=== PATIENT | female | born 2000 | race Caucasian/White ===

== ENCOUNTER 2019-01-02 10:54 | Emergency (ER) | payer OTHER, BC ==
[2019-01-02 11:04] VITALS: TEMP 98.3
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
[2019-01-02 12:52] VITALS: BP 111/66; PULSE 55; RESP 18
== END 2019-01-02 12:50 | disposition home or self-care (01) ==
LOC: EC 10:54
DX: S62.002A Unspecified fracture of navicular [scaphoid] bone of left wrist, initial encounter for closed fracture (principal); F17.200 Nicotine dependence, unspecified, uncomplicated; V43.52XA Car driver injured in collision with other type car in traffic accident, initial encounter; W22.11XA Striking against or struck by driver side automobile airbag, initial encounter; Y92.410 Unspecified street and highway as the place of occurrence of the external cause
CPT/HCPCS: 29125; 99284

== ENCOUNTER → 2019-04-24 | Outpatient (CLI) | payer BC ==
--- NOTE | 2019-04-24 14:46 | US ---
EXAMINATION TYPE: US pelvis complete transvag DATE OF EXAM: 04/24/2019 COMPARISON: NONE CLINICAL HISTORY: R10.9 abdominal pain,R10.2Pelvic and perineal pain. Patient has never had a period. Patient had an ultrasound at Dr. Goyal's office that stated no uterus with only 1 ovary TECHNIQUE: Transvaginal (TV) and Transabdominal (TA) . Transabdominal sonographic images of the pel vis were acquired. Transvaginal sonographic images were medically necessary to better assess the fol lowing anatomy: uterus Date of LMP: EXAM MEASUREMENTS: Uterus: unable to visualize Endometrial Stripe: unable to visualize Right Ovary: 4.0 x 2.0 x 2.4 cm Left Ovary: 3.9 x 2.4 x 3.7 cm 1. Uterus: unable to identify distinct uterus at this time 2. Endometrium: unable to visualize 3. Right Ovary: appears bulky adjacent to right ovary 4. Left Ovary: cystic area = 3.0 x 1.8 x 2.8cm IMPRESSION: Left ovarian cyst. Indeterminate focus adjacent to the right ovary. Uterus is not seen de finitively. Pelvic MRI may be of benefit.
--- NOTE | 2019-04-24 14:59 | US ---
EXAMINATION TYPE: US abdomen complete DATE OF EXAM: 04/24/2019 COMPARISON: NONE CLINICAL HISTORY: R10.9 abdominal pain,R10.2Pelvic and perineal pain. acid reflux EXAM MEASUREMENTS: Liver Length: 13.2 cm Gallbladder Wall: 0.2 cm CBD: 0.3 cm Spleen: 11.7 cm Right Kidney: 11.3 x 4.9 x 4.6 cm Left Kidney: 9.9 x 5.1 x 4.6 cm Pancreas: limited evaluation due to overlying bowel content Liver: appears wnl Gallbladder: no evidence of stones Evidence for sonographic Jim's sign: no CBD: wnl Spleen: wnl Right Kidney: no evidence of hydronephrosiss Left Kidney: no evidence of hydronephrosis Upper IVC: wnl Abd Aorta: wnl There is no ascites. The liver is homogenous. The intrahepatic portion of the IVC and proximal abdominal aorta are within normal limits. There is no evidence of cholelithiasis. Common bile duct is unremarkable. The visu alized portions of the pancreas are homogenous. The spleen is unremarkable. Kidneys are symmetric a nd free of hydronephrosis. No renal lesions are seen. IMPRESSION: No significant abnormalities evident.
== END | disposition home or self-care (01) ==
LOC: RADCTMAIN 11:58
PROVIDERS: ATTEND Family Medicine
DX: N83.202 Unspecified ovarian cyst, left side (principal)
CPT/HCPCS: 76700; 76830; 76856

== ENCOUNTER 2019-06-26 01:09 | Emergency (ER) | payer BC ==
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
--- NOTE | 2019-06-26 01:56 | CT ---
EXAM: CT Head Without Intravenous Contrast CLINICAL HISTORY: ITS.REASON CT Reason: Pain TECHNIQUE: Axial computed tomography images of the head/brain without intravenous contrast. CTDI is 49 mGy and DLP is 1078 mGy-cm. This CT exam was performed using one or more of the following dose reduction techniques: automated exposure control, adjustment of the mA and/or kV according to patient size, and/or use of iterative reconstruction technique. COMPARISON: No relevant prior studies available. FINDINGS: Brain: No hemorrhage, large hypodensity, or mass effect. Ventricles: No hydrocephalus. Bones/joints: Unremarkable. Soft tissues: Unremarkable. Sinuses: Unremarkable. Mastoid air cells: Clear. IMPRESSION: No acute hemorrhage, hydrocephalus, or mass effect.
[2019-06-26 02:18] VITALS: BP 101/64; PULSE 79; RESP 16; TEMP 97.9
== END 2019-06-26 02:17 | disposition home or self-care (01) ==
LOC: EC 01:09
DX: S06.899A Other specified intracranial injury with loss of consciousness of unspecified duration, initial encounter (principal); F17.200 Nicotine dependence, unspecified, uncomplicated; W50.1XXA Accidental kick by another person, initial encounter; Y92.64 Mine or pit as the place of occurrence of the external cause
CPT/HCPCS: 70450; 99284

== ENCOUNTER 2020-01-17 12:12 | Inpatient (IN) | payer BC ==
[2020-01-17 12:47] LABS: Appearance,Urine Clear (Clear); Bilirubin,Urine Negative (Negative); Blood,Urine Negative (Negative); Color,Urine Yellow; Glucose,Urine (UA) Negative (Negative); Ketones,Urine Negative (Negative); Leukocyte Esterase,Urine Negative (Negative); Nitrite,Urine Negative (Negative); Protein,Urine Negative (Negative); Specific Gravity,Urine 1.015 (1.001-1.035); Urobilinogen,Urine <2.0 mg/dL (<2.0)
--- NOTE | 2020-01-17 12:51 | ED ---
General Adult HPI - General Chief complaint: Psychiatric Symptoms Stated complaint: Suicidal Time Seen by Provider: 01/17/20 12:28 Source: patient, family, RN notes reviewed Mode of arrival: ambulatory - History of Present Illness Initial comments: 19-year-old female without any significant past medical history presents to the emergency department for a chief coming of suicidal thoughts. Mother states that patient has been telling her boyfriend that she is suicidal and her boyfriend has been relaying this information to patient's sister. Patient does admit she's had thoughts of harming herself. Denies a plan of suicide. Mother states this is very and character state of her. patient began doing cocaine a few months ago and has been drinking heavily. Patient states she thinks this is why she is feeling this way. She is not on any antidepressants and has not ever been diagnosed with psychiatric condition prior to this.Patient has no other complaints at this time including shortness of breath, chest pain, abdominal pain, nausea or vomiting, headache, or visual changes. - Related Data Home Medications Medication Instructions Recorded Confirmed No Known Home Medications 01/02/19 01/02/19 Allergies Allergy/AdvReac Type Severity Reaction Status Date / Time No Known Allergies Allergy Verified 01/17/20 12:23 Review of Systems ROS Statement: Those systems with pertinent positive or pertinent negative responses have been documented in the HPI. ROS Other: All systems not noted in ROS Statement are negative. Past Medical History Past Medical History: No Reported History History of Any Multi-Drug Resistant Organisms: None Reported Past Surgical History: No Surgical Hx Reported Past Psychological History: No Psychological Hx Reported Smoking Status: Current every day smoker Past Alcohol Use History: Daily Past Drug Use History: Cocaine General Exam General appearance: alert, in no apparent distress Head exam: Present: atraumatic, normocephalic, normal inspection Eye exam: Present: normal appearance, PERRL, EOMI. Absent: scleral icterus, conjunctival injection, periorbital swelling ENT exam: Present: normal exam, mucous membranes moist Respiratory exam: Present: normal lung sounds bilaterally. Absent: respiratory distress, wheezes, rales, rhonchi, stridor Cardiovascular Exam: Present: regular rate, normal rhythm, normal heart sounds. Absent: systolic murmur, diastolic murmur, rubs, gallop, clicks GI/Abdominal exam: Present: soft, normal bowel sounds. Absent: distended, tenderness, guarding, rebound, rigid Neurological exam: Present: alert Course Vital Signs 01/17/20 01/17/20 01/17/20 12:20 12:47 13:23 Temperature 98.1 F Pulse Rate 114 H Respiratory 20 20 20 Rate Blood Pressure 148/87 O2 Sat by Pulse 95 Oximetry 01/17/20 14:23 Temperature Pulse Rate Respiratory 20 Rate Blood Pressure O2 Sat by Pulse Oximetry - Reevaluation(s) Reevaluation #1: 01/17/20 14:29 Patient reevaluated, resting comfortably. Family members at bedside. Medical Decision Making - Medical Decision Making She was evaluated by EPS, recommending inpatient admission. - Lab Data Lab Results 01/17/20 01/17/20 01/17/20 Range/Units 12:30 12:30 12:30 Urine Color Yellow Urine Appearance Clear (Clear) Urine pH 6.0 (5.0-8.0) Ur Specific Alexis 1.015 (1.001-1.035) Urine Protein Negative (Negative) Urine Glucose (UA) Negative (Negative) Urine Ketones Negative (Negative) Urine Blood Negative (Negative) Urine Nitrite Negative (Negative) Urine Bilirubin Negative (Negative) Urine Urobilinogen <2.0 (<2.0) mg/dL Ur Leukocyte Esterase Negative (Negative) Urine HCG, Qual Not Detected (Not Detectd) Urine Opiates Screen Not Detected (NotDetected) Ur Oxycodone Screen Not Detected (NotDetected) Urine Methadone Screen Not Detected (NotDetected) Ur Propoxyphene Screen Not Detected (NotDetected) Ur Barbiturates Screen Not Detected (NotDetected) U Tricyclic Antidepress Not Detected (NotDetected) Ur Phencyclidine Scrn Not Detected (NotDetected) Ur Amphetamines Screen Not Detected (NotDetected) U Methamphetamines Scrn Not Detected (NotDetected) U Benzodiazepines Scrn Not Detected (NotDetected) Urine Cocaine Screen Detected H (NotDetected) U Marijuana (THC) Screen Not Detected (NotDetected) Disposition Clinical Impression: Suicidal thoughts Disposition: TRANSFER TO PSYCH HOSP/UNIT Condition: Fair Is patient prescribed a controlled substance at d/c from ED?: No Referrals: Haresh Magallon DO [Primary Care Provider] - 1-2 days Time of Disposition: 14:29
[2020-01-17 13:08] LABS: Amphetamine Screen,Urine Not Detected (NotDetected); Barbiturate Screen,Urine Not Detected (NotDetected); Benzodiazepines Screen,Urine Not Detected (NotDetected); Cocaine Screen,Urine Detected (NotDetected); Methadone Screen, Urine Not Detected (NotDetected); Opiate Screen,Urine Not Detected (NotDetected); Oxycodone Screen, Urine Not Detected (NotDetected); Phencyclidine Screen,Urine Not Detected (NotDetected); Tricyclic Antidepressant,Urine Not Detected (NotDetected); Urn Cannabinoid Scrn Not Detected (NotDetected)
[2020-01-17] MEDS ORDERED: LORazepam 1 MG TAB PO PRN (16:03)
[2020-01-17] MEDS ORDERED: MAG HYDROX/AL HYDROX/SIMETH 30 ML CUP PO PRN (16:03)
[2020-01-17] MEDS ORDERED: ACETAMINOPHEN TAB 325 MG TAB PO PRN (16:03)
[2020-01-17] MEDS ORDERED: ZIPRASIDONE 20 MG VIAL IM PRN (16:03)
[2020-01-17] MEDS ORDERED: MAGNESIUM HYDROXIDE 2,400 MG/10 ML CUP PO PRN (16:03)
--- NOTE | 2020-01-18 00:48 | P.MDCNMH ---
History of Present Illness H&P Date: 01/17/20 Chief Complaint: medical evaluation 19 year old female with history of depression comes in due to suicidal ideation she admits to cocaine use and heavy alcohol use. During the interview patient is tearful she denies any active medical issues at this time denies any chest pain or trouble breathing denies any fevers or chills or upper respiratory infection denies any abdominal pain nausea vomiting denies any diarrhea. Review of Systems Pertinent positives as noted in HPI. All other systems were reviewed and are negative Past Medical History Past Medical History: No Reported History Additional Past Medical History / Comment(s): anorexia nervosa [facility] week History of Any Multi-Drug Resistant Organisms: None Reported Past Surgical History: No Surgical Hx Reported Past Psychological History: No Psychological Hx Reported Smoking Status: Current every day smoker Past Alcohol Use History: Daily Additional Past Alcohol Use History / Comment(s): started drinkin summer 1-2 24 0z beers a day Past Drug Use History: Cocaine Additional Drug Use History / Comment(s): started summer cocaine Medications and Allergies Home Medications Medication Instructions Recorded Confirmed Type No Known Home Medications 01/02/19 01/17/20 History Allergies Allergy/AdvReac Type Severity Reaction Status Date / Time No Known Allergies Allergy Verified 01/17/20 18:21 Physical Exam Vitals: Vital Signs Temp Pulse Pulse Resp BP BP Pulse Ox 01/17/20 16:14 98.7 F 97 16 127/74 97 01/17/20 15:50 20 01/17/20 15:00 98 20 140/80 98 01/17/20 14:23 20 01/17/20 13:23 20 01/17/20 12:47 20 01/17/20 12:20 98.1 F 114 H 20 148/87 95 Intake and Output 01/17/20 01/17/20 01/18/20 14:59 22:59 06:59 Other: Weight 58.967 kg 58.967 kg Constitutional: No acute distress, conversant, pleasant Eyes: Anicteric sclerae, moist conjunctiva, no lid-lag Pupils equal round reactive to light ENMT: NC/AT Oropharynx clear, no erythema, exudates Neck: Supple, FROM, no masses, or JVD No carotid bruits No thyromegaly Lungs: Clear to auscultation Clear to percussion Normal respiratory effort, no accessory muscle use Cardiovascular: Heart regular in rate and rhythm, No murmurs, gallops, or rubs No peripheral edema Abdominal: Soft Nontender, no guarding, rebound or rigidity Abdomen moving with respiration Normoactive bowel sounds No hepatomegaly, No splenomegaly No palpable mass No abdominal wall hernia noted Skin: Normal temperature, tone, texture, turgor No induration No subcutaneous nodules No rash, lesions No ulcers Extremities: No digital cyanosis No clubbing Pedal pulses intact and symmetrical Radial pulses intact and symmetrical No calf tenderness Psychiatric: Alert and oriented to person, place and time Patient is tearful fair judgement Neuro Muscles Strength 5/5 in all 4 extremities Sensation to light touch grossly present throughout Cranial nerves II-XII grossly intact No focal sensory deficits Lymphatics: no palpable cervical or supraclavicular , or inguinal lymph no [place] Cranial Nerve Examination - Cranial Nerves Cranial Nerve II- Optic: Intact Cranial Nerve III- Oculomotor: Intact Cranial Nerve IV- Trochlear: Intact Cranial Nerve V- Trigeminal: Intact Cranial Nerve - Abducens: Intact Cranial Nerve VII- Facial: Intact Cranial Nerve VIII- Auditory: Intact Cranial Nerve IX- Glossopharyngeal: Intact Cranial Nerve X- Vagus: Intact Cranial Nerve XI- Accessory: Intact Cranial Nerve XII- Hypoglossal: Intact Results Labs: Abnormal Lab Results - Last 24 Hours (Table) 01/17/20 Range/Units 12:30 Urine Cocaine Screen Detected H (NotDetected) Assessment and Plan Assessment: 19-year-old female with depression comes in due to suicidal ideation medicine consulted for medical management currently she denies any medical concerns Plan: Depression and suicidal ideation Management per psych Polysubstance abuse Patient counseled to quit drug of abuse Low risk for DVT patient ambulatory Thank you for allowing us to participate in the care of this patient. We will follow peripherally. Do not hesitate to contact us with questions. Someone can be reached from the [facility] hospitalist group at all hours of the day at [phone].
[2020-01-18 10:36] VITALS: BMI 23.0
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
[2020-01-18] MEDS: SERTRALINE 50 MG TAB PO SCH (12:14)
[2020-01-18 14:59] LABS: Hemoglobin A1C 5.1 % (4.0-6.0)
[2020-01-19] MEDS: SERTRALINE 50 MG TAB PO SCH (08:41)
--- NOTE | 2020-01-19 11:20 | P.PN ---
Progress Note - Text Interval history: The patient's found in the [facility] she follows me to an interview room. She indicates her mood is improved. She has had phone conversations with her mother the have been supportive. She states her mother shared that she too had been on Zoloft several years ago and found the medication effective. The patient has slept 6 hours last night she is attending meals. She has been attending groups although she is still anxious. We discussed inpatient chemical dependency treatment which she is still refusing she indicates however she would attend AA groups and attend outpatient psychiatric care. Mental status exam: The patient is a shorter statured female appearing her stated age she is dressed in her own clothing hygiene grooming adequate. Eye contact is appropriate speech is fluent spontaneous nonpressured she demonstrates no tangential thinking loose associations or flight of ideas. In terms of suicidal ideation she reports feeling safe in the hospital she feels of hopeless thinking is improving. No report of any homicidal ideation intent or plan. No report or evidence of psychosis. She frequently changes position while seated in her chair. Affect is brighter today compared to yesterday session. She demonstrates no tearfulness today. Insight and judgment limited. Plan: The patient will continue on the Zoloft as written. Continue to encourage inpatient chemical dependency treatment. He plan to titrate the Zoloft further during the course of the hospitalization. She is encouraged to continue participating in the milieu, we will monitor her for safety. Vital signs reviewed they are within normal limits he was scored 0.
[2020-01-20] MEDS: SERTRALINE 50 MG TAB PO SCH (09:01)
[2020-01-20] MEDS ORDERED: SERTRALINE 50 MG TAB PO ONE (09:46)
--- NOTE | 2020-01-20 09:51 | P.PN ---
Progress Note - Text Interval history: The patient is found in group she follows me to an interview room. She indicates her mood is good. She has been compliant with the Zoloft she has no questions or concerns regarding the medication. We discussed titrating the dose further and she is agreeable. She reports that she slept well last night indicating she slept approximate 7 a half hours. Appetite stable. She has had several phone conversations with family and found them supportive. She anticipates her parents will visit this evening. She has been attending group. She continues to not want inpatient chemical dependency treatment. She did receive a list of AA meetings and states that she plans to attend those. Mental status exam: The patient is alert she is dressed in her own clothing hygiene grooming adequate. Eye contact is good speech is fluent spontaneous nonpressured. She indicates her mood is good affect appears euthymic. She is reporting no hopelessness thinking or any suicidal ideation intent or plan. No report of any homicidal ideation. She demonstrates no evidence of psychosis hypomania or rhina. She demonstrates no verbal or physical aggressiveness. She feels that her anxiety symptoms have been more manageable in group. Plan: The patient will continue on the Zoloft we will titrate to 100 mg daily starting today, social work will be asked to arrange a support meeting. We will consider discharging her from the mental health unit in the next 1-2 days. Vital signs reviewed. She is encouraged to continue participating in the milieu.
[2020-01-21 06:41] VITALS: TEMP 98.4
--- NOTE | 2020-01-21 08:43 | P.DS ---
Providers Date of admission: 01/17/20 15:38 Expected date of discharge: 01/21/20 Attending physician: Jose Luis Lynn Consults: 01/17/20 16:03 Consult Physician Routine Consulting Provider: Tameka Horton Consult Reason/Comments: medical management Do you want consulting provider notified?: Yes Primary care physician: Haresh Magallon - Discharge Diagnosis(es) (1) Major depressive disorder, recurrent severe without psychotic features Current Visit: Yes Status: Acute Priority: High (2) Social anxiety disorder Current Visit: Yes Status: Acute Priority: High (3) Alcohol use disorder, moderate, dependence Current Visit: Yes Status: Acute Priority: Medium (4) Cocaine use disorder, moderate, dependence Current Visit: Yes Status: Acute Priority: Medium Hospital Course: Brief summary of admission note: This patient is a 19-year-old [place] female who was admitted to the mental health unit through the emergency room for suicidal ideation. The patient stated her mood have been progressively worsening and she felt hopeless. Since June she had been considering suicide. She had thoughts of trying to of exposure recently. She's been tearful on a daily basis sleep has been excessive energy has been low. She described having panic attacks on a frequent basis and symptoms of social anxiety. For full details please refer to my psychiatric evaluation dated 01/18/2020. Summary of hospital course: The patient was admitted to the mental health unit voluntarily. We reviewed her presenting symptoms and treatment options. We decided to initiate Zoloft and we titrated the dose to 100 mg daily while on the mental health unit. She was seen by internal medicine for routine history and physical exam. experimental worker met with the patient to complete a psychosocial assessment and for discharge planning purposes. The patient attended groups. She reported a progressive improvement of symptoms while here. A support meeting was held including her mother yesterday. The patient states that she is no longer feeling hopeless she has no suicidal thoughts and she demonstrates future oriented thinking. We offered inpatient chemical dependency treatment several times but she has declined. She indicates she will attend AA groups and go to outpatient counseling. We discussed using naltrexone but she would defer that option as well. Mental status exam: The patient's a shorter statured female appearing her stated age. She has short hair she has gauge type earrings, she has a piercing across the bridge of her nose, she has several visible tattoos on her upper extremities. She is dressed in her own clothing hygiene grooming are adequate. Eye contact is good speech is fluent spontaneous nonpressured. She reports her mood is much better affect is euthymic. She is reporting no suicidal or homicidal ideation intent or plan. She states that she does not feel hopeless. She is reporting no auditory or visual hallucinations or any specific delusions. There is no observed evidence of psychosis. Thought process is linear she demonstrates no tangential thinking loose associations or flight of ideas. She does not appear hypomanic or manic. She demonstrates no verbal or physical aggressiveness she demonstrates no involuntary repetitive movements. Insight and judgment are grossly intact. She remains oriented to person place and date. She spontaneously describes examples of future oriented thinking. Impressions 1. Major depressive disorder recurrent severe without psychosis, social anxiety disorder, alcohol use disorder moderate, cocaine use disorder moderate, rule out PTSD, history of anorexia nervosa Plan: The patient will be discharged mental health unit today she will return to her father's residence. [facility]. She indicates she is willing to attend AA meetings. Again she does not wish to participate in inpatient chemical dependency treatment. She does not wish to have naltrexone prescribed at this time for alcohol use cravings. She is instructed to abstain from any use of alcohol marijuana cocaine or any illicit drug as he is can provoke mood symptoms and elevate her safety risk. At this time there is no imminent safety risk she is appropriate for continued care as an outpatient. She is instructed to return to the hospital with any acute safety concerns. Patient Condition at Discharge: Stable Plan - Discharge Summary Discharge Rx Participant: No New Discharge Prescriptions: New Sertraline [Zoloft] 100 mg PO DAILY #30 tab Discharge Medication List Sertraline [Zoloft] 100 mg PO DAILY #30 tab 01/21/20 [Rx] Follow up Appointment(s)/Referral(s): [facility] [Outside] - 1 Week (01/26/20 at 1130 am with Haresh Hyatt DO [Primary Care Provider] - 1-2 days Patient Instructions/Handouts: Help Prevent Suicide (DC) Activity/Diet/Wound Care/Special Instructions: Activity and diet as tolerated. Avoid the use of street drugs and alcohol. Take all medications as prescribed. When you are in need of refills on your medications please contact your medical provider and/or outpatient psychiatrist to have this done. Please go to scheduled outpatient appointment for aftercare treatment. If symptoms return or become worse, call the crisis line at and/or go to the nearest emergency room for evaluation.
[2020-01-21] MEDS ORDERED: SERTRALINE 100 MG TAB PO SCH (09:00)
[2020-01-21 09:21] VITALS: BP 102/58; PULSE 72; RESP 20
== END 2020-01-21 11:38 | disposition home or self-care (01) | DRG 885 ==
LOC: EC 12:12 → 3MHU 15:38
PROVIDERS: ADMIT Psychiatry & Neurology Psychiatry; ATTEND Psychiatry & Neurology Psychiatry
DX: F33.2 Major depressive disorder, recurrent severe without psychotic features (principal); F14.20 Cocaine dependence, uncomplicated; R45.851 Suicidal ideations; F40.10 Social phobia, unspecified; F41.0 Panic disorder [episodic paroxysmal anxiety]; T43.225A Adverse effect of selective serotonin reuptake inhibitors, initial encounter; F17.200 Nicotine dependence, unspecified, uncomplicated; F10.20 Alcohol dependence, uncomplicated; Z86.59 Personal history of other mental and behavioral disorders
CPT/HCPCS: 80061; 80306; 81003; 81025; 82075; 83036; 84443; 99285

== ENCOUNTER 2024-01-05 13:13 | Emergency (ER) | payer BC ==
--- NOTE | 2024-01-05 13:28 | ED ---
General Adult HPI - General Chief complaint: Psychiatric Symptoms Stated complaint: Mental health Time Seen by Provider: 01/05/24 13:14 Source: patient, EMS, RN notes reviewed Mode of arrival: EMS Limitations: no limitations - History of Present Illness Initial comments: Patient is a pleasant 23-year-old female present to the emergency department with depression. Patient states she called the suicide hotline. Patient states she had suicidal thoughts however denies having plan. This varies from stated by security police officer. Patient denies homicidal thoughts. No hallucinations. No new physical complaints. - Related Data Home Medications Medication Instructions Recorded Confirmed Venlafaxine HCl [Effexor XR] 75 mg PO DAILY 01/05/24 01/05/24 Allergies Allergy/AdvReac Type Severity Reaction Status Date / Time No Known Allergies Allergy Verified 01/05/24 15:44 Review of Systems ROS Statement: Those systems with pertinent positive or pertinent negative responses have been documented in the HPI. ROS Other: All systems not noted in ROS Statement are negative. Constitutional: Denies: fever Eyes: Denies: eye pain ENT: Denies: ear pain Respiratory: Denies: cough Psychiatric: Reports: as per HPI, anxiety, depression, suicidal thoughts Past Medical History Past Medical History: No Reported History Additional Past Medical History / Comment(s): anorexia nervosa [facility] week History of Any Multi-Drug Resistant Organisms: None Reported Past Surgical History: No Surgical Hx Reported Past Psychological History: No Psychological Hx Reported Smoking Status: Current every day smoker, Vaper Past Alcohol Use History: Daily Past Drug Use History: Cocaine General Exam Limitations: no limitations General appearance: alert, anxious Head exam: Present: normocephalic Eye exam: Present: normal appearance Neck exam: Present: normal inspection Respiratory exam: Present: normal lung sounds bilaterally Cardiovascular Exam: Present: regular rate, normal rhythm GI/Abdominal exam: Present: soft. Absent: tenderness Extremities exam: Present: normal inspection Neurological exam: Present: alert Psychiatric exam: Present: normal affect, normal mood Skin exam: Present: abrasion (Old, well-healed) Course Vital Signs 01/05/24 13:15 Pulse Rate 102 H Respiratory 20 Rate Blood Pressure 145/78 O2 Sat by Pulse 98 Oximetry Medical Decision Making - Medical Decision Making Was pt. sent in by a medical professional or institution (, PA, DIRECTOR OF ROOMS, urgent care, hospital, or usp...) When possible be specific @ -No Did you speak to anyone other than the patient for history (EMS, parent, family, police, friend...)? What history was obtained from this source @ -No Did you review nursing and triage notes (agree or disagree)? Why? @ -I reviewed and agree with nursing and triage notes Were old charts reviewed (outside hosp., previous admission, EMS record, old EKG, old radiological studies, urgent care reports/EKG's, usp records)? Report findings @ -Petition reviewed Differential Diagnosis (chest pain, altered mental status, abdominal pain women, abdominal pain men, vaginal bleeding, weakness, fever, dyspnea, syncope, headache, dizziness, GI bleed, back pain, seizure, CVA, palpatations, mental health, musculoskeletal)? @ -Differential Mental Health Depression, anxiety, bipolar, psychosis, schizophrenia, borderline personality, situational depression, adjustment disorder, behavioral disorder, brain tumor, malingering, substance abuse, encephalopathy, medication reaction, dementia, hypothyroidism, degenerative neurologic disorder, lupus.... This is not meant to be all-inclusive list EKG interpreted by me (3pts min.). @ -As above X-rays interpreted by me (1pt min.). @ -None done CT interpreted by me (1pt min.). @ -None done U/S interpreted by me (1pt. min.). @ -None done What testing was considered but not performed or refused? (CT, X-rays, U/S, labs)? Why? @ -None What meds were considered but not given or refused? Why? @ -None Did you discuss the management of the patient with other professionals (professionals i.e. , PA, DIRECTOR OF ROOMS, lab, RT, psych nurse, social worker assistant, lamination builder, teacher, youth liaison officer, employment case manager)? Give summary @ -Case discussed with psych nurse with plans for admission. Was smoking cessation discussed for >3mins.? @ -No Was critical care preformed (if so, how long)? @ -No Were there social determinants of health that impacted care today? How? (Homelessness, low income, unemployed, alcoholism, drug addiction, transportation, low edu. Level, literacy, decrease access to med. care, skilled nursing, rehab)? @ -No Was there de-escalation of care discussed even if they declined (Discuss DNR or withdrawal of care, Hospice)? DNR status @ -No What co-morbidities impacted this encounter? (DM, HTN, Smoking, COPD, CAD, Cancer, CVA, ARF, Chemo, Hep., AIDS, mental health diagnosis, sleep apnea, morbid obesity)? @ -None Was patient admitted / discharged? Hospital course, mention meds given and route, prescriptions, significant lab abnormalities, going to OR and other pertinent info. @ -Patient presents with depression. Patient has suicidal thoughts and plan. Patient also reportedly left a suicide note. Patient will be admitted to psychiatric care. Positive clinical certificate completed Undiagnosed new problem with uncertain prognosis? @ -No Drug Therapy requiring intensive monitoring for toxicity (Heparin, Nitro, Insulin, Cardizem)? @ -No Were any procedures done? @ -No Diagnosis/symptom? @ -Depression and suicidal ideation Acute, or Chronic, or Acute on Chronic? @ -Acute and acute Uncomplicated (without systemic symptoms) or Complicated (systemic symptoms)? @ -Default Side effects of treatment? @ -No Exacerbation, Progression, or Severe Exacerbation? @ -No Poses a threat to life or bodily function? How? (Chest pain, [place], [place], pneumonia, PE, COPD, DKA, ARF, appy, cholecystitis, CVA, Diverticulitis, Homicidal, Suicidal, threat to staff... and all critical care pts) @ -No - Lab Data Lab Results 01/05/24 Range/Units 14:36 Urine Opiates Screen Not Detected (NotDetected) Ur Oxycodone Screen Not Detected (NotDetected) Urine Methadone Screen Not Detected (NotDetected) Ur Barbiturates Screen Not Detected (NotDetected) U Tricyclic Antidepress Not Detected (NotDetected) Ur Phencyclidine Scrn Not Detected (NotDetected) Ur Amphetamines Screen Not Detected (NotDetected) U Methamphetamines Scrn Not Detected (NotDetected) U Benzodiazepines Scrn Not Detected (NotDetected) Urine Cocaine Screen Detected H (NotDetected) U Marijuana (THC) Screen Not Detected (NotDetected) Disposition Clinical Impression: Depression, Suicidal thoughts Disposition: TRANSFER TO PSYCH HOSP/UNIT Is patient prescribed a controlled substance at d/c from ED?: No Referrals: Haresh Magallon DO [Primary Care Provider] - 1-2 days Time of Disposition: 15:47
[2024-01-05 15:12] LABS: Amphetamine Screen,Urine Not Detected (NotDetected); Barbiturate Screen,Urine Not Detected (NotDetected); Benzodiazepines Screen,Urine Not Detected (NotDetected); Cocaine Screen,Urine Detected (NotDetected); Methadone Screen, Urine Not Detected (NotDetected); Opiate Screen,Urine Not Detected (NotDetected); Oxycodone Screen, Urine Not Detected (NotDetected); Phencyclidine Screen,Urine Not Detected (NotDetected); Tricyclic Antidepressant,Urine Not Detected (NotDetected); Urn Cannabinoid Scrn Not Detected (NotDetected)
[2024-01-05 17:49] LABS: Appearance,Urine Clear (Clear); Bilirubin,Urine Negative (Negative); Blood,Urine Negative (Negative); Color,Urine Colorless; Glucose,Urine (UA) Negative (Negative); Ketones,Urine Negative (Negative); Leukocyte Esterase,Urine Negative (Negative); Nitrite,Urine Negative (Negative); Protein,Urine Negative (Negative); Specific Gravity,Urine 1.015 (1.001-1.035); Urobilinogen,Urine <2.0 mg/dL (<2.0)
[2024-01-05] MEDS: ONDANSETRON 4 MG TAB PO STA (17:56)
[2024-01-05 18:03] LABS: Basophils % (A) 0 %; Eosinophils # (A) 0.1 k/uL (0-0.7); Eosinophils % (A) 1 %; HCT 42.7 % (34.0-46.0); HGB 14.4 gm/dL (11.4-16.0); Lymphocytes # (A) 1.4 k/uL (1.0-4.8); Lymphocytes % (A) 15 %; MCHC 33.7 g/dL (31.0-37.0); MCV 91.9 fL (80.0-100.0); Mean Platelet Volume 7.9; Monocytes # (A) 0.5 k/uL (0-1.0); Monocytes % (A) 6 %; Neutrophils # (A) 7.1 k/uL (1.3-7.7); Neutrophils % (A) 77 %; Platelet Count 305 k/uL (150-450); RBC 4.65 m/uL (3.80-5.40); RDW 12.6 % (11.5-15.5); WBC 9.2 k/uL (3.8-10.6)
[2024-01-05 18:24] LABS: ALT 15 U/L (4-34); AST 28 U/L (14-36); African American GFR (CKD) >90 (>60 ml/min/1.73 sqM); Albumin 5.1 g/dL (3.5-5.0); Alkaline Phosphatase 65 U/L (38-126); Anion Gap 9 mmol/L; Blood Urea Nitrogen 9 mg/dL (7-17); Calcium 9.8 mg/dL (8.4-10.2); Carbon Dioxide 25 mmol/L (22-30); Chloride 106 mmol/L (98-107); Glucose 97 mg/dL (74-99); Non-African American GFR(CKD) >90 (>60 ml/min/1.73 sqM); Potassium 4.3 mmol/L (3.5-5.1); Sodium 140 mmol/L (137-145); Total Bilirubin 0.5 mg/dL (0.2-1.3); Total Protein 8.1 g/dL (6.3-8.2)
[2024-01-06 04:00] VITALS: BP 103/61; PULSE 61; RESP 16; TEMP 98.1
== END 2024-01-06 06:18 ==
LOC: EC 13:13
DX: R45.851 Suicidal ideations (principal); F32.A Depression, unspecified; F17.290 Nicotine dependence, other tobacco product, uncomplicated; Z79.899 Other long term (current) drug therapy; Z20.822 Contact with and (suspected) exposure to COVID-19
CPT/HCPCS: 36415; 80053; 80306; 81003; 81025; 82075; 85025; 87635; 99285